=== PATIENT | male | born 1970 | race Caucasian/White ===

== ENCOUNTER → 2020-02-10 | Outpatient (CLI) | payer BC ==
[2020-02-10 17:32] LABS: Osmolality, Urine 155 mos/kg (15-1400)
[2020-02-10 18:13] LABS: Sodium, Urine, Random 26 mmol/L (20-110)
== END | disposition home or self-care (01) ==
LOC: LAB SHORT 14:25 → PLD 14:25
PROVIDERS: Family Medicine
DX: E87.1 Hypo-osmolality and hyponatremia (principal)
CPT/HCPCS: 83935; 84300